=== PATIENT | male | born 1985 | race Caucasian/White ===

== ENCOUNTER 2025-05-07 14:59 | Emergency (ER) | payer BC, SELFPAY ==
--- NOTE | ~2025-05-07 | CT_ITS ---
CLINICAL HISTORY: LLQ pain CT abdomen and pelvis with contrast Comparison: None provided Findings: Included lung bases unremarkable. Abdominal solid organs without acute abnormality, focal lesions or abnormal enhancement. Gallbladder nondistended. Adrenal glands are nonenlarged. Several subcentimeter bilateral cortical renal cysts are noted The stomach and bowel loops are nondistended. There are no focal colonic lesions or pneumatosis. There is no mesenteric inflammation. Appendix is not seen. There are no secondary signs to suggest acute appendicitis. There are fluid-filled loops of distal small bowel as well as partially fluid-filled loops of proximal colon. No free fluid, collections or free air No aortic dissection or aneurysm. No abdominal or pelvic lymphadenopathy. The bladder is normal. There no acute soft tissue or skeletal abnormality in the abdomen or pelvis. IMPRESSION: Minimal fluid-filled loops of distal small bowel as well as proximal colon without associated dilatation or mesenteric inflammation. The findings are nonspecific. Consider mild enteritis in the right clinical setting. The examination is otherwise unremarkable. This document has been electronically signed by: John Soto MD on 05/08/2025 03:31:38
[2025-05-07 15:16] VITALS: BP 156/76; PULSE 60; RESP 18; TEMP 36.8; O2SAT 96; BMI 29.1
--- NOTE | 2025-05-07 15:16 | ED_ITS ---
HPI - Abdominal Pain General Chief Complaint: Abdominal Pain Stated Complaint: abd pain sent in from md office Time Seen by Provider: 05/08/25 01:01 Source: patient Mode of arrival: ambulatory Limitations: no limitations History of Present Illness ED Provider: Dr. Tammi Livingston HPI narrative: Patient comes to the emergency room complaining of left lower quadrant pain for a proximally 6 days. Patient states that he went to see his primary care physician, who was the patient to come to the emergency room to come to get evaluated. Patient has not had any episodes of nausea vomiting or diarrhea. Patient states that the pain is constant. Denies any injuries. Denies any history of kidney stones, denies flank pain. Patient denies any testicular or scrotal pain/swelling. Denies hematuria dysuria Related Data Previous Rx's ?Medication ?Instructions ?Recorded topiramate 100 mg tablet 100 mg PO BID 90 days #180 t abs 05/27/24 hyoscyamine sulfate 0.125 mg tablet 0.125 mg PO QID MT N dyspepsia #14 05/08/25 tabs Allergies Allergy/AdvReac Type Severity Reaction Status Date / Time No Known Allergies Allergy Verified 05/07/25 15:18 Review of Systems Review of Systems Constitutional : No Weight loss, No Fever, No Chills, No Night Sweats, No Fatigue, No Malaise ENT/Mouth : No Hearing loss, No Ear Pain, No Nasal Congestion, No Sinus Pain, No Hoarseness, No sore throat, No Rhinorrhea, No Swallowing Difficulty Eyes: No Eye Pain, No Swelling, No Redness, No Foreign Body, No Discharge, No Vision Changes Cardiovascular : No Chest Pain, No SOB, No Dyspnea on Exertion, No Orthopnea, No Edema, No Palpitations Respiratory : No Cough, No Sputum, No Wheezing, No Smoke Exposure, No Dyspnea Gastrointestinal : No Nausea, No Vomiting, No Diarrhea, No Constipation, complaining of left lower quadrant pain Genitourinary : no irregular bleeding, No Dysuria, No Urinary Frequency, No Hematuria, No Urinary Incontinence, No Urgency, No Flank Pain, No Urinary Flow Changes, No Hesitancy Musculoskeletal : No joint pain, No Myalgias, No Joint Swelling Skin : No Skin Lesions, No rash Neuro : No Weakness, No Numbness, No Paresthesias, No Loss of Consciousness, No Dizziness, No Headache Psych : No Anxiety/Panic, No Depression, No SI/HI/AH/VH, No Social Issues, Heme/Lymph: No Bruising, No Bleeding,No Lymphadenopathy Endocrine : No Polyuria, No Polydipsia, No Temperature Intolerance [facility] Past Medical History Medical History (Updated 05/08/25 @ 03:52 by Tammi Livingston MD) Migraine Anxiety Surgical History (Updated 05/08/25 @ 01:34 by Tammi Livingston MD) History of appendectomy Social History Social History Housing: House Patient Tobacco Use Status: Never used Tobacco e-Cigarette/Vaping Use: Never Used Second Hand Smoke Exposure: No Advance Directives: No Advance Directives Information Provided: No service: No Current occupational status: employed Current occupational exposures/hazards: No Cognitive needs: No Hearing needs: No Vision needs: No Physical Exam ED Exam Exam: Appearance: Alert. Oriented X3. No acute distress. Eyes: Pupils equal, round and reactive to light. ENT: Pharynx normal. Neck: Normal inspection. Neck supple. No lymph nodes noted. No crepitus CVS: Normal heart rate and rhythm. Pulses normal. Normal S1 and S2 Respiratory: No respiratory distress. Breath sounds normal. No Wheezing. No rales Abdomen: Soft , pain to the patient over the left lower quadrant, no rebound, no guarding, no CVA tenderness Skin: Skin warm and dry. Normal skin color. Normal skin turgor. Extremities: No lower extremity edema. No Lacerations. No Rash Neuro: Oriented X 3. No motor deficit. No sensory deficit. Moving all extremities. No slurred speech. CN 2 through 12 grossly intact Psych: calm, cooperative, normal affect Vital Signs: Vital Signs - 24 hr 05/07/25 15:16 05/08/25 00:07 05/08/25 01:52 Temperature 98.2 F 97.3 F 97.5 F Pulse Rate 60 50 67 Respiratory Rate 18 16 18 Blood Pressure 156/76 H 137/87 122/82 Pulse Oximetry 96 97 97 Oxygen Delivery Method Room Air Room Air Room Air BMI result Body Mass Index 29.1 Course Course Course Narrative: This is an RME: Additional HPI, ROS, PE not included below will be deferred to primary provider. RME assessment and note performed by: Carla Salamanca PA-C This is a [id number]-male, with a PMHx of episodic ataxia type 2, who presents to the ER with a complaint of abdominal pain x 5 days. No hx of similar symptoms. Constant, intermittently sharp. No nausea, vomiting, diarrhea, constipation. Hx of appendectomy. Plan: Labs, UA, further ER eval needed Medical Decision Making Medical Decision Making [facility] Narrative: My interpretation of labs: No significant abnormality in patient's hematology and chemistry, urinalysis negative for UTI Given the location of the pain, patient may be having acute onset of diverticulitis. Patient states that he has never had this issue before. CT scan pending. Patient receiving IV ketorolac CT scan does not show any significant acute abnormality, they are minimally food feel loops of distal small bowel. There is possibility that patient may have enteritis. No diverticulitis. Most likely viral illness. WBC within normal limits. At this time, antibiotics are not indicated Differential Diagnosis Differential Diagnoses: The differential diagnosis associated with the presentation includes (Diverticulitis, colitis, kidney stone) Admission/Observation Consideration of admission/observation: Escalation of care including admission/observation considered (Given patient's length of symptoms, observation was considered) Lab Data [facility] Lab Attestation statement: I reviewed the patient's lab results. 05/07/25 15:30 05/07/25 15:30 Labs: Lab Results 05/07/25 Range/Units 15:30 WBC 9.7 (4.8-10.8) X10*3/uL RBC 5.38 (4.60-5.80) X10*6/uL Hgb 16.9 (14.0-18.0) g/dl Hct 48.0 (42.0-52.0) % MCV 89.2 (80.0-98.0) fL MCH 31.4 (27.0-33.0) pg MCHC 35.2 (31.0-36.0) g/dl RDW 12.3 (11.0-16.0) % Plt Count 193 (160-400) X10*3/uL MPV 11.5 (9.4-12.4) fL Immature Gran % (Auto) 0.2 (0.0-0.4) % Neut % (Auto) 55.7 (45-73) % Lymph % (Auto) 31.0 (20-40) % [place] % (Auto) 8.3 (2-11) % Eos % (Auto) 3.6 (0-4) % Baso % (Auto) 1.2 (0-2) % Lymph # (Auto) 3.0 (1.2-4.9) X10*3/uL [place] # (Auto) 0.8 (0.1-1.2) X10*3/uL Eos # (Auto) 0.4 (0.0-0.4) X10*3/uL Baso # (Auto) 0.1 (0.0-0.2) X10*3/uL Abs Immat Gran (auto) 0.02 (0.00-0.03) X10*3/uL Absolute Neuts (auto) 5.4 (2.0-8.3) x10*3/uL Absolute Nucleated RBC 0.000 (0.0-0.012) X10*3/uL Nucleated RBC % (auto) 0.0 (0.0-0.2) /100WBC Sodium 141 (135-145) mmol/L Potassium 4.1 (3.3-5.1) mmol/L Chloride 111 H (96-108) mmol/L Carbon Dioxide 24 (22-29) mmol/L Anion Gap 10 L (12-20) BUN 18 H (9-16) mg/dL Creatinine 1.17 (0.5-1.4) mg/dL Estim Creat Clear Calc 98.5 Estimated GFR > 60 Random Glucose 76 (60-115) mg/dL Calcium 9.3 (8.4-10.2) mg/dL Magnesium 2.4 (1.6-2.6) mg/dL Total Bilirubin 0.4 (0.0-1.0) mg/dL Direct Bilirubin 0.1 (0.0-0.5) mg/dL AST 32 (5-37) U/L ALT 36 (0-40) U/L Alkaline Phosphatase 107 (39-117) U/L Total Protein 7.7 (6.5-8.0) g/dL Albumin 4.6 (3.5-5.0) g/dL Lipase 20 (8-78) U/L Urine Color Yellow Urine Appearance Cloudy Urine pH 6.5 (5.0-9.0) Ur Specific [place] 1.020 (1.005-1.025) Urine Protein Negative (Neg-Trace) mg/dL Urine Glucose (UA) Negative (Negative) mg/dL Urine Ketones Negative (Negative) mg/dL Urine Blood Negative (Negative) Urine Nitrite Negative (Negative) Ur Leukocyte Esterase Negative (Negative) Independent Interpretation I performed an independent interpretation of an: CT Scan Radiology Impression Discussion of test interpretation with radiology: I have reviewed the radiologist's reading. Radiologist Impression: Abdominal solid organs without acute abnormality, focal lesions or abnormal enhancement. Gallbladder nondistended. Adrenal glands are nonenlarged. Several subcentimeter bilateral cortical renal cysts are noted The stomach and bowel loops are nondistended. There are no focal colonic lesions or pneumatosis. There is no mesenteric inflammation. Appendix is not seen. There are no secondary signs to suggest acute appendicitis. There are fluid-filled loops of distal small bowel as well as partially fluid-filled loops of proximal colon. No free fluid, collections or free air No aortic dissection or aneurysm. No abdominal or pelvic lymphadenopathy. The bladder is normal. There no acute soft tissue or skeletal abnormality in the abdomen or pelvis. IMPRESSION: Minimal fluid-filled loops of distal small bowel as well as proximal colon without associated dilatation or mesenteric inflammation. The findings are nonspecific. Consider mild enteritis in the right clinical setting. The examination is otherwise unremarkable. Medications Administered Discontinued Medications Generic Name Dose Route Start Last Admin Trade Name Freq PRN Reason Stop Dose Admin Sodium Chloride 1,000 mls @ 999 mls/hr 05/08/25 01:40 05/08/25 03:25 Ns IVCONT 05/08/25 02:40 Infused .Q1H1M ONE Infusion Iohexol 100 ml 05/08/25 01:34 05/08/25 01:35 Iohexol 350 Mg/Ml 100 Ml Infus..Btl IV 05/08/25 01:35 85 ml ONCE ONE Administration Ketorolac Tromethamine 30 mg 05/08/25 01:22 05/08/25 01:43 Ketorolac Tromethamine 30 Mg/Ml Vial IVPUSH 05/08/25 01:23 30 mg ONCE ONE Administration Critical Care Time Critical Care Time Critical Care Time: Yes Total Critical Care Time: 35 Attestation: I have personally provided critical care time. Time includes review of lab data, radiology results, discussion with consultants, and monitoring for potential decompensation. Intervention performed as documented. Discharge Plan Discharge Clinical Impression: Abdominal pain, Enteritis Patient Disposition: Home, Self-Care Instructions: Acute Abdominal Pain (ED), Enteritis (ED) Additional Instructions: Please follow-up with your primary care physician tomorrow. If you have any worsening or new symptoms, please return to the emergency room or call 911 Prescriptions: New hyoscyamine sulfate 0.125 mg tablet 0.125 mg PO QID PRN (Reason: dyspepsia) Qty: 14 0RF No Action topiramate 100 mg tablet 100 mg PO BID 90 Days Qty: 180 1RF Print Language: Latvian
[2025-05-07 15:38] LABS: MANUAL DIFF FLAG NO
[2025-05-07 15:45] LABS: Hematocrit 48.0 % (42.0-52.0); Hemoglobin 16.9 g/dl (14.0-18.0); Imm Gran Abs Auto 0.02 X10*3/uL (0.00-0.03); Imm Gran Pct Auto 0.2 % (0.0-0.4); Lymphocytes Absolute Auto 3.0 X10*3/uL (1.2-4.9); Mean Corpuscular HGB Conc 35.2 g/dl (31.0-36.0); Mean Corpuscular Hemoglobin 31.4 pg (27.0-33.0); Mean Corpuscular Volume 89.2 fL (80.0-98.0); NRBC Abs Auto 0.000 X10*3/uL (0.0-0.012); NRBC Pct Auto 0.0 /100WBC (0.0-0.2); Platelet Count 193 X10*3/uL (160-400); Red Blood Count 5.38 X10*6/uL (4.60-5.80); White Blood Count 9.7 X10*3/uL (4.8-10.8)
[2025-05-07 15:53] LABS: Appearance Urine Cloudy; Glucose Urine UA Negative (Negative); PH 6.5 (5.0-9.0); Specific Gravity - Urine 1.020 (1.005-1.025)
[2025-05-07 15:55] LABS: Alanine Aminotransferase 36 U/L (0-40); Albumin Level 4.6 g/dL (3.5-5.0); Alkaline Phosphatase 107 U/L (39-117); Anion Gap 10 (12-20); Aspartate Amino Transferase 32 U/L (5-37); Blood Urea Nitrogen 18 mg/dL (9-16); Calcium 9.3 mg/dL (8.4-10.2); Carbon Dioxide 24 mmol/L (22-29); Chloride 111 mmol/L (96-108); Creatinine Clr Calc Pharmacy 98.5; Estimated Glomerular Filt Rate > 60; Lipase 20 U/L (8-78); Magnesium 2.4 mg/dL (1.6-2.6); Potassium 4.1 mmol/L (3.3-5.1); Sodium 141 mmol/L (135-145); Total Protein 7.7 g/dL (6.5-8.0)
--- OUTSIDE RECORDS SUMMARY | 2025-05-07 23:46 | XMS_ITS | Clinical Summary ---
Author Organization [facility] Address [address] [place] [id number] Phone Care Team Providers Care Biofuels Product Manager Name Role Phone Toy Ulrich MD Primary Care Provider [phone] Allergies No known active allergies Medications topiramate (TOPAMAX) 100 MG tablet 1 Active busPIRone (BUSPAR) 15 MG tablet 3 Active escitalopram oxalate (LEXAPRO) 20 MG tablet Take 1 tablet (20 mg total) by mouth daily. 90 tablet 3 4 Active dalfampridine (AMPYRA) 10 mg Tb12 ER tabletIndicati ons:Episodic ataxia Take 1 tablet (10 mg total) by mouth every 12 (twelve) hours. Do not divide, crush, chew, or dissolve. Doses should be taken approximately 12 hours apart. DO NOT take more than 2 doses in any 24 hour period. 180 tablet 3 5 Active Social History Tobacco Use Types Packs/Day Years Used Date Smoking Tobacco: Never Assessed Education Answer Date Recorded Are you interested in more education? Not on liliana e 12/11/2022 Are you concerned about learning? Not on file 12/11/2022 No 12/11/2022 No 12/11/2022 Digital Access Answer Date Recorded No 12/11/2022 No 12/11/2022 Reliable internet access at home? Not on file 12/11/2022 Device with a working camera? Not on file Sex and Gender Information Value Date Recorded Sex Assigned at Male 01/20/2021 9:24 AM EDT Legal Sex Male 9:09 PM EDT Gender Identity Male 01/20/2021 9:24 AM EDT Sexual Orientation Straight 01/20/2021 9: 24 AM EDT Last Filed Vital Signs Vital Sign Reading Time Taken Comments Blood Pressure 132/81 04/03/2024 2:07 PM EST Pulse 60 04/03/2024 2:07 PM EST Temperature 37 C (98.6 F) 04/03/2024 2:07 PM EST Respiratory Rate - - Oxygen Saturation 97% 04/03/2024 2:07 PM EST Inhaled Oxygen Concentration - - Weight 86.2 kg (190 lb) 04/03/2024 2:07 PM EST Height 175.3 cm (5' 9 ) 04/03/2024 2:07 PM EST Body Mass Index 28.06 04/03/2024 2:07 PM EST Plan of Treatment Upcoming Encounters Date Type Department Care Team (Late st Contact Info) Description 07/01/2025 1:00 PM EST Office Visit [facility] DEPARTMENT OF NEUROLOGY [address] [place] [id number] Unknown, Unknown, MD Health Maintenance Due Date Last Done Comments Adult Td,Tdap Booster 1987 LIPID PANEL 1987 DEPRESSION SCREENING 1999 SMOKING Hx and SMOKELESS TOB ACCO SCREENING 2000 HEPATITIS C SCREENING 2005 HIV ONE-TIME SCREENING (18-6 5 YEARS) 2005 SCREENING FOR DIABETES 2022 INFLUENZA VACCINE (#1) 2024 COVID-19 VACCINE (2024-2 6 season) 2025 HEPATITIS A VACCINES Aged Out No long er eligible based on patient's age to complete this topic HIB VACCINES Aged Out No longer eligi ble based on patient's age to complete this topic MENINGOCOCCAL VACCINES (ACWY) Aged Out No longer eligible based on patient's age to complete this topic MENINGOCOCCAL VACCINES (B) Aged Out N o longer eligible based on patient's age to complete this topic PNEUMOCOCCAL VACCINES (0-49 years) Aged Out No longer eligible based on patient's age to complete this topic Medical Devices Not on file Insurance Care Teams Biofuels Product Manager Relationship Specialty Start Date End Date Toy Ulrich MD [address] [place] [phone] [email or web address] PCP - General Internal Medicine 02/10/25 Additional Source Comments The information contained in this document represents components of the legal health record. It is not the complete legal health record.[facility]
--- OUTSIDE RECORDS SUMMARY | 2025-05-07 23:46 | XMS_ITS | Encounter Summary ---
Author Organization [facility] Address [address] [place] [address] Phone Care Team Providers Care Certified Medical Assistant Name Role Phone Nimesh Cuello MD Primary Care Provider [phone] Toy Ulrich MD Primary Care Provider Encounter Details Date Type Department Care Team (Late Contact Info) Description 06/20/2023 Procedure Pass MRI, [facility] [address] [place] [address] Social History Tobacco Use Types Packs/Day Years [...] Orientation Straight 01/20/2021 9: 24 AM EDT documented as of this encounter Plan of Treatment Upcoming Encounters Date Type Department Care Team (Late Contact Info) Description 07/01/2025 1:00 PM EST Office Visit [facility] DEPARTMENT OF NEUROLOGY [address] [place] [address] [address] [place] [id number] Unknown, Unknown, documented as of this encounter Visit Diagnoses Not on filedocumented in this encounter Care Teams Certified Medical Assistant Relationship Specialty Start Date End Date Nimesh Cuello MD [email or web address] PCP - General Family Medicine 12/11/22 02/09/25 Toy Ulrich MD [address] [place] [phone] [email or web address] PCP - General Internal Medicine 02/10/25 documented as of this encounter Additional Source Comments The information contained in this document represents components of the legal health record. It is not the complete legal health record.[facility]
[2025-05-08 00:07] VITALS: BP 137/87; PULSE 50; RESP 16; TEMP 36.3; O2SAT 97
--- NOTE | 2025-05-08 00:07 | PC.NURSE ---
patient was called to come back in main ED to be seen. no answer when name called. patient then camestrella to triage door a few hours l;ater and states he fell asleep in the waiting room and didn't hear his name called. patient placed back on tracker to be brought back to be assessed.
[2025-05-08] MEDS: iohexoL 350 MG/ML 100 ML INFUS..BTL IV (01:35)
[2025-05-08 01:52] VITALS: BP 122/82; PULSE 67; RESP 18; TEMP 36.4; O2SAT 97
[2025-05-08 04:09] VITALS: BP 122/82; PULSE 67; RESP 18; TEMP 36.4; O2SAT 97
== END 2025-05-08 04:10 | disposition home or self-care (01) ==
PROVIDERS: Physician Assistant Medical; Emergency Provider Emergency Medicine; PCP Family Medicine
DX: K52.9 Noninfective gastroenteritis and colitis, unspecified (principal); R10.23 Pelvic and perineal pain bilateral; R11.2 Nausea with vomiting, unspecified; Z79.899 Other long term (current) drug therapy
CPT/HCPCS: 36415; 74177; 80048; 80076; 81003; 83690; 83735; 85025; 96361; 96374; 99284; 99285; J1885; Q9967

== ENCOUNTER → 2025-05-08 01:22 | Outpatient (BNV) | payer BC, SELFPAY | PROVIDERS: Emergency Provider Emergency Medicine; PCP Family Medicine; Visit Provider Radiology Diagnostic Radiology | DX: R10.32 Left lower quadrant pain (principal) | CPT/HCPCS: 74177 ==